=== PATIENT | male | born 1950 | race Caucasian/White ===

== ENCOUNTER 2022-06-25 06:24 | Day surgery (SDC) | payer MEDICARE, BC ==
[~2022-06-25 06:24] MED LIST: Proparacaine 0.5% Ophth Soln 15 ML Bottle ONE
[2022-06-25] MEDS ORDERED: Midazolam 1 MG/ML 2 ML SDV IV ONE (06:25)
[2022-06-25] MEDS ORDERED: Sodium Chloride 0.9% 10 ML Syringe IV ONE (06:25)
[2022-06-25] MEDS ORDERED: Dexamethasone 4 MG/ML SDV IV ONE (06:25)
[2022-06-25] MEDS ORDERED: Timolol Maleate 0.5% Ophth Soln 5 ML Bottle EYELF ONE (06:30)
[2022-06-25] MEDS ORDERED: Proparacaine 0.5% Ophth Soln 15 ML Bottle EYELF ONE (06:30)
[2022-06-25] MEDS ORDERED: Phenylephrine 10% Ophth Soln 5 ML Bot EYERT PRN (06:30)
[2022-06-25] MEDS ORDERED: Cataract Ophth Solution EYELF ONE (06:30)
[2022-06-25] MEDS ORDERED: Ondansetron 4 MG/2 ML SDV IVPUSH PRN (06:30)
[2022-06-25] MEDS ORDERED: Povidone-Iodine 5% Sterile Ophth Soln 30 ML Bottle EYERT ONE ×3 (06:30→09:18)
[2022-06-25] MEDS ORDERED: Sodium Chloride 0.9% 10 ML Syringe FLUSH PRN (06:30)
[2022-06-25] MEDS ORDERED: Acetaminophen 325 MG Tab PO PRN (06:30)
[2022-06-25] MEDS ORDERED: Acetaminophen/Codeine 300-30 MG Tab PO PRN (06:30)
[2022-06-25] MEDS ORDERED: Tropicamide 1% Ophth Soln 15 ML Bottle EYELF ONE (06:30)
[2022-06-25] MEDS ORDERED: Moxifloxacin 0.5% Ophth Soln 3 ML Bottle EYERT ONE (06:30)
[2022-06-25] MEDS ORDERED: Proparacaine 0.5% Ophth Soln 15 ML Bottle EYERT ONE ×2 (06:57→09:18)
[2022-06-25] MEDS ORDERED: Apraclonidine 0.5% Ophth Soln 5 ML Bot EYERT ONE (06:59)
[2022-06-25] MEDS ORDERED: Diclofenac Sodium 0.1% Ophth Soln 5 ML Bottle EYERT ONE ×2 (07:00→09:19)
[2022-06-25] MEDS ORDERED: Dexamethasone/Neomycin/Polymyxin B Ophth Oint 3.5 GM Tube EYERT ONE ×2 (07:03→09:19)
[2022-06-25] MEDS ORDERED: Lidocaine 1% 30 ML SDV ONE ×2 (07:03→09:19)
[2022-06-25] MEDS ORDERED: Balanced Salt Solution Ophth Irrig 500 ML Bottle IOCULAR ONE ×2 (07:04→09:20)
[2022-06-25] MEDS ORDERED: Vancomycin 500 MG SDV EYERT ONE ×2 (07:05→09:20)
[2022-06-25] MEDS ORDERED: Chondroitin Sulfate/Hyaluronate Sodium Ophth Inj 0.75 ML Syringe EYERT ONE ×2 (07:06→09:20)
== END 2022-06-25 09:59 | disposition home or self-care (01) ==
LOC: DL.SDS 06:24
PROVIDERS: ATTEND Ophthalmology
DX: H25.811 Combined forms of age-related cataract, right eye (principal); I10 Essential (primary) hypertension; E78.5 Hyperlipidemia, unspecified; F32.A Depression, unspecified; Z79.899 Other long term (current) drug therapy; Z98.890 Other specified postprocedural states
CPT/HCPCS: 00142; 66984; A9270; C1780; J1100; J2250; J3370; J3490

== ENCOUNTER → 2022-07-09 | Day surgery (SDC) | payer MEDICARE, BC ==
[~2022-07-09] MED LIST changes: +Acetaminophen 325 MG Tab PO PRN; +Acetaminophen/Codeine 300-30 MG Tab PO PRN; +Apraclonidine 0.5% Ophth Soln 5 ML Bot EYELF ONE; +Balanced Salt Solution Ophth Irrig 500 ML Bottle IOCULAR ONE; +Cataract Ophth Solution EYELF ONE; +Chondroitin Sulfate/Hyaluronate Sodium Ophth Inj 0.75 ML Syringe EYELF ONE; +Dexamethasone 4 MG/ML SDV IV ONE; +Dexamethasone/Neomycin/Polymyxin B Ophth Oint 3.5 GM Tube EYELF ONE; +Diclofenac Sodium 0.1% Ophth Soln 5 ML Bottle EYELF ONE; +Lidocaine 1% 30 ML SDV ONE; +Midazolam 1 MG/ML 2 ML SDV IV ONE; +Moxifloxacin 0.5% Ophth Soln 3 ML Bottle EYELF ONE; +Ondansetron 4 MG/2 ML SDV IVPUSH PRN; +Phenylephrine 10% Ophth Soln 5 ML Bot EYELF PRN; +Povidone-Iodine 5% Sterile Ophth Soln 30 ML Bottle EYELF ONE; +Proparacaine 0.5% Ophth Soln 15 ML Bottle EYELF ONE; +Sodium Chloride 0.9% 10 ML Syringe FLUSH PRN; +Sodium Chloride 0.9% 10 ML Syringe IV ONE; +Timolol Maleate 0.5% Ophth Soln 5 ML Bottle EYELF ONE; +Tropicamide 1% Ophth Soln 15 ML Bottle EYELF ONE; +Vancomycin 500 MG SDV EYELF ONE
== END | disposition home or self-care (01) ==
LOC: DL.SDS 06:24
PROVIDERS: ATTEND Ophthalmology
DX: H25.812 Combined forms of age-related cataract, left eye (principal); I10 Essential (primary) hypertension; E78.5 Hyperlipidemia, unspecified; F32.A Depression, unspecified; K57.30 Diverticulosis of large intestine without perforation or abscess without bleeding; Z98.890 Other specified postprocedural states; Z79.899 Other long term (current) drug therapy
CPT/HCPCS: 00142; A9270-GY; J1100; J2250; J3370; J3490; V2632